=== PATIENT | male | born 2000 | race Hispanic/Latino ===

== ENCOUNTER 2023-11-03 11:24 | Emergency (ER) | payer SELFPAY ==
[2023-11-03 11:55] VITALS: BP 139/91; PULSE 85; RESP 18; TEMP 37.1; O2SAT 100; BMI 27.8
--- NOTE | 2023-11-03 16:12 | ED.BACK ---
HPI - Back Pain/Injury <Deidra Valles PA-C - Last Filed: 11/03/23 16:17> General Chief Complaint: Back Pain/Injury Stated Complaint: back pain Time Seen by Provider: 11/03/23 14:00 Source: patient History of Present Illness HPI Narrative: 23-year-old male with no reported past medical history presents to the ED with 2 months of right-sided mid back pain. Patient endorses that pain is worsened with twisting movements. No trauma. Patient went to a chiropractor this morning, who sent him to the ED to rule out rib fractures. Patient denies pain with inspiration, chest pain. No numbness, tingling, weakness. No urinary hesitancy, urinary difficulties. No fever, chills. Related Data Allergies Allergy/AdvReac Type Severity Reaction Status Date / Time No Known Drug Allergies Allergy Verified 11/03/23 11:55 Review of Systems <Deidra Valles PA-C - Last Filed: 11/03/23 16:17> Constitutional Constitutional: Denies chills, Denies fatigue, Denies fever(s), Denies frequent falls, Denies lethargy and Denies weakness Eyes Eyes: Denies change in vision, Denies eye discharge, Denies irritation and Denies loss of vision ENT Ears, Nose, Mouth, and Throat: Denies change in voice, Denies dizziness, Denies neck pain, Denies sore throat and Denies throat swelling Cardiovascular Cardiovascular: Denies chest pain, Denies irregular heart rhythm, Denies lightheadedness, Denies palpitations, Denies dyspnea, Denies dyspnea on exertion and Denies orthopnea Respiratory Respiratory: Denies cough, Denies dyspnea, Denies dyspnea on exertion and Denies wheezing Gastrointestinal Gastrointestinal: Denies abdominal pain, Denies change in bowel habits, Denies diarrhea, Denies nausea and Denies vomiting Musculoskeletal Musculoskeletal: Reports back pain, Denies neck pain and Denies numbness Integumentary/Breasts Skin/Breast: Denies pruritus, Denies erythema, Denies rash and Denies wounds Neurologic Neurologic: Denies behavioral changes, Denies confusion, Denies dizziness, Denies frequent falls, Denies loss of vision, Denies numbness and Denies weakness Psychiatric Psychiatric: Denies anxiety, Denies behavioral changes, Denies confusion, Denies depression, Denies homicidal ideation and Denies suicidal ideation Endocrine Endocrine: Denies fatigue, Denies flushing and Denies palpitations Hematologic/Lymphatic Hematologic/Lymphatic: Denies easy bruising Allergic/Immunologic Allergic/Immunologic: Denies urticaria, Denies throat swelling and Denies wheezing Patient History <Deidra Valles PA-C - Last Filed: 11/03/23 16:17> Social History Smoking Status: Never smoker Smoking Status: Never smoker alcohol intake frequency: other Substance Use Type: does not use Exam <Deidra Valles PA-C - Last Filed: 11/03/23 16:17> Narrative Exam Narrative: Const General:?cooperative, healthy appearing and comfortable HENMT Head:?normal to inspection Ears:?hearing grossly normal bilaterally Nose:?external nose normal Face and sinus:?normal facial exam and sinuses nontender Mouth:?oral mucosae normal Throat:?posterior oropharynx normal Eyes General:?appearance normal, both eyes and all related structures Neck Neck:?normal visual inspection and no lymphadenopathy noted Resp Effort & Inspection:?normal respiratory effort Auscultation:?clear to auscultation bilaterally Cardio Rate:?regular rate Rhythm:?regular rhythm Musculoskeletal No midline tenderness to palpation. No paraspinal tenderness to palpation. No tenderness to palpation in the lower rib area where patient reports pain. Patient states that his pain is only reproducible when he moves with twisting movements. No pain on inspiration. There is full range of motion. Gait is normal. Neurovascularly intact. Neuro General:?patient alert, patient awake and patient oriented x3 Initial Vital Signs Initial Vital Signs: Vital Signs Temperature 98.8 F 11/03/23 11:55 Pulse Rate 85 11/03/23 11:55 Respiratory Rate 18 11/03/23 11:55 Blood Pressure 139/91 H 11/03/23 11:55 Pulse Oximetry 100 11/03/23 11:55 Oxygen Delivery Method Room Air 11/03/23 11:55 <Marybel Krishnamurthy MD - Last Filed: 11/21/23 02:31> Initial Vital Signs Initial Vital Signs: Vital Signs Temperature 98.8 F 11/03/23 11:55 Pulse Rate 85 11/03/23 11:55 Respiratory Rate 18 11/03/23 11:55 Blood Pressure 139/91 H 11/03/23 11:55 Pulse Oximetry 100 11/03/23 11:55 Oxygen Delivery Method Room Air 11/03/23 11:55 Course <Deidra Valles PA-C - Last Filed: 11/03/23 16:17> Vital Signs Vital signs: Vital Signs - 8 hr 11/03/23 11:55 Temperature 98.8 F Pulse Rate 85 Respiratory Rate 18 Blood Pressure 139/91 H Pulse Oximetry 100 Oxygen Delivery Method Room Air <Marybel Krishnamurthy MD - Last Filed: 11/21/23 02:31> Vital Signs Vital signs: Vital Signs - 8 hr 11/03/23 11:55 Temperature 98.8 F Pulse Rate 85 Respiratory Rate 18 Blood Pressure 139/91 H Pulse Oximetry 100 Oxygen Delivery Method Room Air MDM - Back Pain/Injury <Deidra Valles PA-C - Last Filed: 11/03/23 16:17> MDM Narrative Medical decision making narrative: 23-year-old male with no reported past medical history presents to the ED with 2 months of right-sided mid back pain. Offered to do rib x-rays, however patient declined since he was in a [place] to catch the [place]. Given history and physical exam, no tenderness to palpation, no trauma, unlikely fracture/dislocation. Patient's symptoms are most consistent with a musculoskeletal sprain/strain. Recommend lidocaine patches, ibuprofen, Tylenol, muscle relaxant. Prescribed muscle relaxant. Recommend follow-up with PCP as soon as possible. ED return precautions discussed with patient. Patient verbalized understanding. Medical records reviewed: Yes Discharge Plan Departure Patient Disposition: Home Clinical Impression: Acute upper back pain Instructions: DI for Back Strain or Sprain Activity Restrictions/Additional Instructions: You were evaluated in the ED today for right-sided upper back pain. Your symptoms are most consistent with a musculoskeletal sprain/strain. You may use lidocaine patches which are available [id number] under the trade name Salonpas. You may take 800 mg of ibuprofen every 8 hours with food. You may also take 1000 mg of Tylenol every 8 hours. You are being prescribed a muscle relaxant as well. The muscle relaxant might make you sleepy and therefore please do not use it when operating machinery or driving. Please follow-up with your primary care doctor as soon as possible. Return to the ED if you have worsening symptoms, numbness, tingling, weakness, urinary difficulties Stand Alone Forms: Patient Portal/API ED Sign-out <Marybel Krishnamurthy MD - Last Filed: 11/21/23 02:31> Cosign ED Attending Cosignature Attestation: I was immediately available in the department for consultation throughout this patient's visit. Marybel Krishnamurthy MD
== END 2023-11-03 14:35 | disposition home or self-care (01) ==
PROVIDERS: Emergency Provider Student in an Organized Health Care Education/Training Program
DX: M54.6 Pain in thoracic spine (principal)
CPT/HCPCS: 99281; 99283

== ENCOUNTER → 2024-06-29 13:09 | Outpatient (CLI) | payer SELFPAY ==
[2024-06-29 19:50] LABS: Bacteria Urine None Seen; Culture Indicated Urine Cult Not Indicated; RBC Urine None Seen (0-5/HPF); Squamous Epithelial Cell Urine None Seen (0-5/HPF); Urine Volume 10mL (spun); WBC Urine None Seen (0-5/HPF)
== END ==
PROVIDERS: PCP Physician Assistant Medical; Visit Provider Physician Assistant Medical
DX: R10.9 Unspecified abdominal pain (principal)
CPT/HCPCS: 81015

== ENCOUNTER → 2024-07-15 09:40 | Outpatient (CLI) | payer SELFPAY ==
[2024-07-15 19:15] LABS: Add Manual Diff / Slide Review NO; Basophils Absolute Auto 100 /uL (0-100); Eosinophils Absolute Auto 0 /uL (0-450); Eosinophils Percent Auto 0.6 % (2-4); Hematocrit 46.5 % (41-53); Lymphocytes Absolute Auto 2300 /uL (1100-4500); Mean Corpuscular HGB Conc 34.4 % (30-36); Mean Corpuscular Hemoglobin 30.8 PG (26-34); Mean Corpuscular Volume 89.4 fL (80-100); Monocytes Absolute Auto 400 /uL (0-900); Monocytes Percent Auto 6.3 % (3-14); Neutrophils Absolute Auto 3200 /uL (1500-7000); Neutrophils Percent Auto 54.1 % (50-75); Platelet Count 307 X10^3/uL (150-400); Red Blood Cell Count 5.21 X10^6/uL (4.5-5.9)
[2024-07-15 19:28] LABS: Alanine Aminotransferase 22 IU/L (<50); Albumin 5.1 g/dL (3.5-5.0); Albumin Globulin Ratio 1.6 (1.0-2.8); Alkaline Phosphatase 79 U/L (38-126); Aspartate Aminotransferase 29 IU/L (17-59); BUN Creatinine Ratio 16.9 (6-22); Bilirubin Total 1.1 mg/dL (0.2-1.3); Blood Urea Nitrogen 13 mg/dL (9-20); Calcium 10.2 mg/dL (8.4-10.2); Carbon Dioxide 26 mmol/L (22-32); Chloride 103 mmol/L (98-107); Estimated Glomerular Filt Rate > 60 mL/min (>60); Globulin 3.2 g/dL (1.7-4.1); Glucose 103 mg/dL (70-100); HEMOLYSIS 23 (0-50); Sodium 142 mmol/L (137-145); Total Protein 8.3 g/dL (6.3-8.2)
== END ==
PROVIDERS: PCP Physician Assistant Medical; Visit Provider Physician Assistant Medical
DX: R10.9 Unspecified abdominal pain (principal)
CPT/HCPCS: 80053; 85025